=== PATIENT | male | born 1955 | race Caucasian/White ===

== ENCOUNTER 2020-09-22 09:52 | Emergency (ER) | payer MEDICAID, OTHER ==
[~2020-09-22] VITALS: Ht 182.9 cm; Wt 100.1 kg
[~2020-09-22 09:52] MED LIST: NO HOME MEDS
[2020-09-22] MEDS ORDERED: IBUP-1985 PO (12:28)
[2020-09-22 12:36] VITALS: BP 146/70
== END 2020-09-22 12:38 | disposition home or self-care (01) ==
LOC: ER 09:53
DX: S50.11XA Contusion of right forearm, initial encounter (principal); R22.31 Localized swelling, mass and lump, right upper limb; V18.0XXA Pedal cycle driver injured in noncollision transport accident in nontraffic accident, initial encounter; Y93.89 Activity, other specified; Y92.89 Other specified places as the place of occurrence of the external cause; Y99.8 Other external cause status
CPT/HCPCS: 29125; 73090; 73110; 99284

== ENCOUNTER 2024-08-07 11:22 | Emergency (ER) | payer MEDICAID, MEDICARE ==
[~2024-08-07] VITALS: Ht 180.3 cm; Wt 86.3 kg
[~2024-08-07 11:22] MED LIST changes: +IBUP-1985 PO
[2024-08-07 11:57] LABS: BILIRUBIN,URINE NEGATIVE (Neg); CLARITY,URINE CLOUDY (Clear); COLOR,URINE YELLOW (Yellow); GLUCOSE, URINE NEGATIVE (Neg); KETONES,URINE NEGATIVE (Neg); LEUKOCYTE ESTERASE ,URINE LARGE (Neg); NITRITES, URINE POSITIVE (Neg); OCCULT BLOOD,URINE LARGE (Neg); PROTEIN,URINE 30 mg/dl (Neg); UROBILINOGEN,URINE 0.2 E.U/dL (0.2-1.0)
[2024-08-07 12:01] LABS: UA COLLECTION TYPE FOLEY CATH
[2024-08-07 12:02] LABS: BACTERIA,URINE 4+ /HPF (Neg); MUCUS STRANDS NONE SEEN /LPF (Neg); RBC,URINE 50-100 /HPF (0-2); SQUAMOUS EPITHELIAL CELL,UR NONE SEEN /LPF (FEW); WBC,URINE 50-100 /HPF (0-4)
[2024-08-07] MEDS ORDERED: CEPH-585 PO (13:06)
[2024-08-07] MEDS: cephalexin 250mg capsule PO ONE (13:16)
[2024-08-07 13:23] VITALS: BP 98/54; PULSE 77; RESP 16; TEMP 98.1; O2SAT 96
== END 2024-08-07 13:25 | disposition home or self-care (01) ==
LOC: ER 11:23
DX: N40.1 Benign prostatic hyperplasia with lower urinary tract symptoms (principal); R33.8 Other retention of urine; Z79.1 Long term (current) use of non-steroidal anti-inflammatories (NSAID)
CPT/HCPCS: 51702; 81001; 87077; 87088; 87186; 99284; A4314; A4358